=== PATIENT | female | born 1970 | race Caucasian/White ===

== ENCOUNTER → 2020-09-18 | Outpatient (CLI) | payer BC, OTHER | LOC: EXRD 08:30 | DX: R10.31 Right lower quadrant pain (principal); Z90.49 Acquired absence of other specified parts of digestive tract | CPT/HCPCS: 76700 ==

== ENCOUNTER → 2022-05-06 | Outpatient (CLI) | payer BC | LOC: US 15:30 | DX: M79.604 Pain in right leg (principal) | CPT/HCPCS: 73522; 73562; 73600; 73620; 93971 ==